=== PATIENT | male | born 1960 | race African-American/Black ===

== ENCOUNTER 2016-12-06 11:47 | Inpatient (IN) | payer BC ==
[2016-12-06 13:39] VITALS: BMI 23.2
--- NOTE | 2016-12-06 16:22 | HP ---
CIWA Score - CIWA Score Nausea/Vomitin Muscle Tremors: 4-Moderate,w/Arms Extend Anxiety: 4-Mod. Anxious/Guarded Agitation: 4-Moderately Restless Paroxysmal Sweats: 1-Minimal Palms Moist Orientation: 0-Oriented Tacttile Disturbances: 2-Mild Itch/Numbness/Burn Auditory Disturbances: 0-None Visual Disturbances: 0-None Headache: 4-Moderately Severe CIWA-Ar Total Score: 22 Admission ROS S - HPI Chief Complaint: Alcohol withdrawal sx Allergies/Adverse Reactions: Allergies Allergy/AdvReac Type Severity Reaction Status Date / Time No Known Allergies Allergy Verified 12/06/16 16:22 History of Present Illness: 56 years old male with a long history of alcohol dependence is admitted for detox. Patient has been in previous detox, recently 09/2016 at [facility]. Reports 5 months of sobriety and alcohol withdrawal when he is not drinking. Reports h/o of 5 seizures in september 2014, severe anxiety, 3 episodes of diarrhea and vomiting and inability to hold food. Poor skin turgor and dry mucous membrane noted and he appears dehydrated. Exam Limitations: No Limitations - Ebola screening Have you traveled outside of the country in the last 21 days: No Have you had contact with anyone from an Ebola affected area: No Have you been sick,other than usual withdrawal symptoms: No Do you have a fever: No - Review of Systems Constitutional: Chills, Loss of Appetite, Malaise, Night Sweats, Changes in sleep EENT: reports: Dental Problems (Missing upper teeth), Other (Left eye blindness) Respiratory: reports: Productive cough (thick, yellowish phelgm) Cardiac: reports: No Symptoms Reported GI: reports: Diarrhea (x 2.), Vomiting (x 3.) : reports: No Symptoms Reported Musculoskeletal: reports: Muscle Pain, Muscle Weakness, Joint Stiffness Integumentary: reports: Dryness, Flushing Neuro: reports: Headache, Seizure (alcohol related), Tingling, Tremors Endocrine: reports: Flushing, Unexplained Weight Loss Hematology: reports: No Symptoms Reported Psychiatric: reports: Orientated x3, Anxious, Depressed Other Systems: Reviewed and Negative Patient History - Patient Medical History Hx Anemia: Yes Hx Asthma: Yes Hx Chronic Obstructive Pulmonary Disease (COPD): No Hx Cancer: Yes (Kidney Ca) Hx Cardiac Disorders: No Hx Congestive Heart Failure: No Hx Hypertension: Yes (On meds; patient does not remember name/dose) Hx Hypercholesterolemia: No HX Cerebrovascular Accident: No Hx Seizures: Yes (September 2016) Hx Diabetes: No Hx Gastrointestinal Disorders: No Hx Liver Disease: No Hx Genitourinary Disorders: No Hx Sexually Transmitted Disorders: Yes (Herpes on meds) Hx Renal Disease (ESRD): No Hx Thyroid Disease: No Hx Human Immunodeficiency Virus (HIV): No (2016) Hx Hepatitis C: No Hx Depression: Yes Hx Suicide Attempt: No (Denies suicidal ideation at this time) Hx Bipolar Disorder: No Hx Schizophrenia: No Other Medical History: Gout - Patient Surgical History Past Surgical History: Yes Hx Neurologic Surgery: No Hx Cataract Extraction: Yes (2011) Hx Cardiac Surgery: No Hx Lung Surgery: No Hx Breast Surgery: No Hx Breast Biopsy: No Hx Abdominal Surgery: No Hx Appendectomy: No Hx Cholecystectomy: No Hx Genitourinary Surgery: No Hx Orthopedic Surgery: Yes (Left knee and left wrist due to a fall in 1974) Anesthesia Reaction: No - PPD History Previous Implant?: Yes Documented Results: Negative w/o proof Implanted On Prior [facility] Admission?: No PPD to be Administered?: Yes - Reproductive History Patient is a Female of Child Bearing Age (11 -55 yrs old): No (MALE) - Smoking Cessation Smoking history: Current every day smoker Have you smoked in the past 12 months: Yes Aproximately how many cigarettes per day: 20 Hx Chewing Tobacco Use: No Initiated information on smoking cessation: Yes 'Breaking Loose' booklet given: 12/06/16 - Substance & Tx. History Hx Alcohol Use: Yes Hx Substance Use: Yes Substance Use Type: Alcohol, Marijuana Hx Substance Use Treatment: Yes ([facility]) - Substances Abused Alcohol Route: Oral Frequency: Daily Amount used: 3 (4O-OZ) beer Age of first use: 17 Date of Last Use: 12/06/16 Marijuana/Hashish Route: Smoking Frequency: Daily Amount used: $25 Age of first use: 17 Date of Last Use: 12/06/16 Cocaine Route: Inhalation Frequency: 1-2 times per week Amount used: $20 Age of first use: 17 Date of Last Use: 12/02/16 Family Disease History - Family Disease History Family Disease History: CA: Mother (Lung Ca, .), Other: Father ( ) Admission Physical Exam [facility] - Vital Signs Vital Signs: Vital Signs - 24 hr 12/06/16 13:37 Temperature 96.2 F L Pulse Rate 77 Respiratory 20 Rate Blood Pressure 159/95 - Physical General Appearance: Yes: Moderate Distress, Alcohol on Breath, Tremorous, Irritable, Anxious HEENTM: Yes: Normal ENT Inspection, Normal Voice, Other (Left eye blindness) Respiratory: Yes: Lungs Clear, Normal Breath Sounds, No Respiratory Distress Neck: Yes: Supple Breast: Yes: Breast Exam Deferred Cardiology: Yes: Regular Rhythm, Regular Rate, S1, S2 Abdominal: Yes: Normal Bowel Sounds, Flat, Soft Genitourinary: Yes: Within Normal Limits Back: Yes: Within Normal Limits Musculoskeletal: Yes: Muscle Pain, Muscle weakness Extremities: Yes: Tremors, Other (Surgical scar to left knee and left wrist) Neurological: Yes: Fully Oriented, Alert, Normal Response Integumentary: Yes: Dry, Other (Left arm tatoo) Lymphatic: Yes: Within Normal Limits - Diagnostic (1) Alcohol dependence with uncomplicated withdrawal Current Visit: Yes Status: Acute (2) Marijuana dependence Current Visit: Yes Status: Acute (3) Sedative, hypnotic or anxiolytic dependence with withdrawal, uncomplicated Current Visit: Yes Status: Chronic (4) Seizure Current Visit: Yes Status: Chronic (5) Hypertension Current Visit: Yes Status: Chronic (6) Anxiety Current Visit: Yes Status: Chronic (7) Herpes Current Visit: Yes Status: Chronic (8) Kidney malignant neoplasm Current Visit: Yes Status: Chronic (9) Gout Current Visit: Yes Status: Chronic Cleared for Admission [facility] - Detox or Rehab [facility] Level of Care: Medically Managed Detox Regimen/Protocol: Librium [facility] Breath Alcohol Content Breath Alcohol Content: 0.029 Urine Drug Screen - Results Drug Screen Negative: No Urine Drug Screen Results: THC-Marijuana, BZO-Benzodiazepines
[2016-12-06] MEDS ORDERED: hydrOXYzine PAMOATE 50 MG CAPSULE (FP) PO PRN (17:05)
[2016-12-06] MEDS ORDERED: LOPERAMIDE HCL 2 MG CAPSULE PO PRN (17:05)
[2016-12-06] MEDS ORDERED: MAGNESIUM CITRATE 300 ML BOTTLE PO PRN (17:05)
[2016-12-06] MEDS ORDERED: MENTHOL/PHENOL 1 EACH UD MM PRN (17:05)
[2016-12-06] MEDS ORDERED: MAGNESIUM HYDROX 2400MG/30ML ORAL SUSPENSION 30 ML CUP PO PRN (17:05)
[2016-12-06] MEDS ORDERED: MAG HYDROX/AL HYDROX/SIMETH 30 ML UNIT-DOSE CUP PO PRN (17:05)
[2016-12-06] MEDS ORDERED: guaiFENesin/D-METHORPHAN HB 10 ML UNIT-DOSE CUPS PO PRN (17:05)
[2016-12-06] MEDS ORDERED: NICOTINE POLACRILEX 2 MG GUM BC PRN (17:05)
[2016-12-06] MEDS ORDERED: chlordiazePOXIDE HCL 25 MG CAPSULE PO PRN (17:05)
[2016-12-06] MEDS ORDERED: P-EPHED 60MG/TRIPROLIDI 2.5MG TABLET PO PRN (17:05)
[2016-12-06] MEDS: IBUPROFEN 400 MG TABLET (FP) PO PRN (20:17)
[2016-12-06] MEDS: diphenhydrAMINE HCL 50 MG CAPSULE PO PRN (22:19)
[2016-12-06] MEDS: chlordiazePOXIDE HCL 25 MG CAPSULE PO SCH (22:19)
[2016-12-06] MEDS: THIAMINE HCL 100 MG TABLET (FP) PO SCH (22:19)
[2016-12-06 22:25] LABS: URINE APPEARANCE CLEAR; URINE BILIRUBIN NEGATIVE (NEGATIVE); URINE BLOOD 1+ (NEGATIVE); URINE COLOR DKYELLOW; URINE GLUCOSE (UA) NEGATIVE (NEGATIVE); URINE KETONE NEGATIVE (NEGATIVE); URINE NITRITE NEGATIVE (NEGATIVE); URINE PROTEIN NEGATIVE (NEGATIVE)
[2016-12-07] MEDS: chlordiazePOXIDE HCL 25 MG CAPSULE PO SCH ×4 (06:22→22:26)
[2016-12-07] MEDS: IBUPROFEN 400 MG TABLET (FP) PO PRN ×2 (06:42→14:40)
[2016-12-07 10:06] LABS: MCH 31.8 pg (25.7-33.7); MEAN CELL VOLUME 99.3 fl (80-96); MEAN PLT VOLUME 8.9 fl (7.5-11.1); PLATELET COUNT 202 K/MM3 (134-434); RDW 15.2 % (11.9-15.9); WHITE BLOOD COUNT 6.4 K/mm3 (4.0-10.0)
[2016-12-07] MEDS: PRENATAL VITAMINS W/ FOLIC ACID TABLET (FP) PO SCH (10:26)
[2016-12-07 10:27] LABS: URINE LEUK ESTERASE Negative (NEGATIVE)
[2016-12-07] MEDS: NICOTINE 14 MG/24 HOURS TOPICAL PATCH TD SCH (10:27)
[2016-12-07] MEDS: QUEtiapine FUMARATE 50 MG TABLET PO SCH ×2 (10:27→22:26)
[2016-12-07] MEDS: ACETAMINOPHEN 325 MG TABLET (FP) PO PRN ×2 (10:42→17:15)
[2016-12-07 10:44] LABS: ALBUMIN 3.1 g/dl (3.4-5.0); ALK PHOS 111 U/L (45-117); ANION GAP 8 (8-16); BILIRUBIN,TOTAL 1.2 mg/dL (0.2-1.0); CALCIUM 8.2 mg/dL (8.5-10.1); CO2 26 mmol/L (21-32); GLUCOSE,RANDOM 94 mg/dL (74-106); SGOT/AST 23 U/L (15-37); SGPT/ALT 19 U/L (12-78); TOT PROT 7.2 g/dl (6.4-8.2)
--- NOTE | 2016-12-07 10:48 | EKG ---
Test Reason : Blood Pressure : / mmHG Vent. Rate : 075 BPM Atrial Rate : 075 BPM P-R Int : 152 ms QRS Dur : 102 ms QT Int : 390 ms P-R-T Axes : 074 068 068 degrees QTc Int : 435 ms NORMAL SINUS RHYTHM NONSPECIFIC ST ABNORMALITY ABNORMAL ECG NO PREVIOUS ECGS AVAILABLE Confirmed by DAVID NAIDU MD ([id number]) on 12/07/2016 10:47:52 AM Referred By: Confirmed By:DAVID NAIDU MD
--- NOTE | 2016-12-07 11:11 | PN ---
[facility] CIWA - CIWA Score Nausea/Vomitin-No Nausea/No Vomiting Muscle Tremors: 4-Moderate,w/Arms Extend Anxiety: 4-Mod. Anxious/Guarded Agitation: 4-Moderately Restless Paroxysmal Sweats: 1-Minimal Palms Moist Orientation: 0-Oriented Tacttile Disturbances: 3-Moderate Itch/Numb/Burn Auditory Disturbances: 0-None Visual Disturbances: 0-None Headache: 0-None Present CIWA-Ar Total Score: 16 S Progress Note (SOAP) Subjective: ANXIETY,TREMORS,IRRITABILITY,SWEATS/CHILLS. Objective: 12/07/16 11:09 Vital Signs Temperature 98.0 F 12/07/16 09:16 Pulse Rate 69 12/07/16 09:16 Respiratory Rate 20 12/07/16 09:16 Blood Pressure 124/84 12/07/16 09:16 O2 Sat by Pulse Oximetry (%) Laboratory Last Values WBC 6.4 K/mm3 (4.0-10.0) 12/07/16 07:00 RBC 3.49 M/mm3 (4.00-5.60) L 12/07/16 07:00 Hgb 11.1 GM/dL (11.7-16.9) L 12/07/16 07:00 Hct 34.7 % (35.4-49) L 12/07/16 07:00 MCV 99.3 fl (80-96) H 12/07/16 07:00 MCH 31.8 pg (25.7-33.7) 12/07/16 07:00 MCHC 32.0 g/dl (32.0-35.9) 12/07/16 07:00 RDW 15.2 % (11.9-15.9) 12/07/16 07:00 Plt Count 202 K/MM3 (134-434) 12/07/16 07:00 MPV 8.9 fl (7.5-11.1) 12/07/16 07:00 Sodium 138 mmol/L (136-145) 12/07/16 07:00 Potassium 3.4 mmol/L (3.5-5.1) L 12/07/16 07:00 Chloride 104 mmol/L (98-107) 12/07/16 07:00 Carbon Dioxide 26 mmol/L (21-32) 12/07/16 07:00 Anion Gap 8 (8-16) 12/07/16 07:00 BUN 11 mg/dL (7-18) 12/07/16 07:00 Creatinine 1.0 mg/dL (0.7-1.3) 12/07/16 07:00 Creat Clearance w eGFR > 60 (>60) 12/07/16 07:00 Random Glucose 94 mg/dL (74-106) 12/07/16 07:00 Calcium 8.2 mg/dL (8.5-10.1) L 12/07/16 07:00 Total Bilirubin 1.2 mg/dL (0.2-1.0) H 12/07/16 07:00 AST 23 U/L (15-37) 12/07/16 07:00 ALT 19 U/L (12-78) 12/07/16 07:00 Alkaline Phosphatase 111 U/L (45-117) 12/07/16 07:00 Total Protein 7.2 g/dl (6.4-8.2) 12/07/16 07:00 Albumin 3.1 g/dl (3.4-5.0) L 12/07/16 07:00 Urine Color Dkyellow 12/06/16 22:10 Urine Appearance Clear 12/06/16 22:10 Urine pH 5.0 (5.0-8.0) 12/06/16 22:10 Ur Specific [place] 1.020 (1.005-1.025) 12/06/16 22:10 Urine Protein Negative (NEGATIVE) 12/06/16 22:10 Urine Glucose (UA) Negative (NEGATIVE) 12/06/16 22:10 Urine Ketones Negative (NEGATIVE) 12/06/16 22:10 Urine Blood 1+ (NEGATIVE) H 12/06/16 22:10 Urine Nitrite Negative (NEGATIVE) 12/06/16 22:10 Urine Bilirubin Negative (NEGATIVE) 12/06/16 22:10 Urine Urobilinogen 2.0 mg/dL (0.2-1.0) 12/06/16 22:10 Ur Leukocyte Esterase Negative (NEGATIVE) 12/06/16 22:10 Urine RBC 3-6 /hpf (0-3) 12/06/16 22:10 LAB RESULTS NOTED. Assessment: 12/07/16 11:10 WITHDRAWAL SX Plan: CONTINUE DETOX
--- NOTE | 2016-12-07 11:24 | CONSULT ---
[facility] Psychiatric Consult - Data Date of interview: 12/07/16 Admission source: [facility] Identifying data: This is 56 years old male with no p[sychiatric hospitalization history intoxicated with: Alcohol, Cannabis and Nicotine Substance Abuse History: - Smoking Cessation. Smoking history: Current every day smoker. Have you smoked in the past 12 months: Yes. Aproximately how many cigarettes per day: 20. Hx Chewing Tobacco Use: No. Initiated information on smoking cessation: Yes. 'Breaking Loose' booklet given: 12/06/16. - Substance & Tx. History. Hx Alcohol Use: Yes. Hx Substance Use: Yes. Substance Use Type : Alcohol, Marijuana. Hx Substance Use Treatment: Yes ([facility]). - Substances Abused. Alcohol. Route: Oral. Frequency: Daily. Amount used: 3 (4O-OZ) beer. Age of first use: 17. Date of Last Use: . Marijuana/Hashish. Route: Smoking. Frequency: Daily. Amount used: $ 25. Age of first use: 17. Date of Last Use: 12/06/16. Cocaine. Route: Inhalation. Frequency: 1-2 times per week. Amount used: $20. Age of first use : 17. Date of Last Use: 12/02/16 Medical History: Gout, HTN, Hisotry of Kidney Neoplasm, Seizure history Psychiatric History: Patient reports history of anxiety, reports taking prior to admission: Seroquel 50mg po bid. Gabapentin 300mg po tid Physical/Sexual Abuse/Trauma History: Denies Additional Comment: Seroquel 50mg po bid. Gabapentin 300mg po tid Mental Status Exam - Mental Status Exam Alert and Oriented to: Person Cognitive Function: Fair Patient Appearance: Unkempt Mood: Sad Affect: Flat Patient Behavior: Sedated Speech Pattern: Appropriate Voice Loudness: Mildly Soft/Quiet Thought Process: Circumstantial Thought Disorder: Being Controlled Hallucinations: Denies Suicidal Ideation: Denies Homicidal Ideation: Denies Insight/Judgement: Fair Sleep: Difficulty falling asleep Appetite: Fair Muscle strength/Tone: Mild Hypotonicity Gait/Station: Shuffling Additional Comments: Seroquel 50mg po bid. Gabapentin 300mg po tid Psychiatric Findings - Problem List ([place] 1, 2,3) (1) Alcohol dependence with uncomplicated withdrawal Current Visit: Yes Status: Acute (2) Marijuana dependence Current Visit: Yes Status: Acute (3) Sedative, hypnotic or anxiolytic dependence with withdrawal, uncomplicated Current Visit: Yes Status: Chronic (4) Drug-induced mood disorder Current Visit: Yes Status: Acute - Initial Treatment Plan Initial Treatment Plan: Seroquel 50mg po bid. Gabapentin 300mg po tid
[2016-12-07] MEDS: GABAPENTIN 300 MG CAPSULE (FP) PO SCH ×2 (14:38→22:26)
[2016-12-07] MEDS: THIAMINE HCL 100 MG TABLET (FP) PO SCH (22:26)
[2016-12-07] MEDS: diphenhydrAMINE HCL 50 MG CAPSULE PO PRN (22:27)
[2016-12-08] MEDS: GABAPENTIN 300 MG CAPSULE (FP) PO SCH ×3 (05:59→22:20)
[2016-12-08] MEDS: chlordiazePOXIDE HCL 25 MG CAPSULE PO SCH ×3 (05:59→17:22)
[2016-12-08] MEDS: IBUPROFEN 400 MG TABLET (FP) PO PRN ×3 (06:08→17:26)
--- NOTE | 2016-12-08 08:33 | PN ---
S CIWA - CIWA Score Nausea/Vomitin-Mild Nausea/No Vomiting Muscle Tremors: 4-Moderate,w/Arms Extend Anxiety: 4-Mod. Anxious/Guarded Agitation: 4-Moderately Restless Paroxysmal Sweats: 3 Orientation: 0-Oriented Tacttile Disturbances: 2-Mild Itch/Numbness/Burn Auditory Disturbances: 0-None Visual Disturbances: 0-None Headache: 3-Moderate CIWA-Ar Total Score: 21 S Progress Note (SOAP) Subjective: [place]ED[place], shakes, insomnia, anxiety, numness and tingling requesting additional medications Objective: 12/08/16 08:30 Vital Signs - 24 hr 12/07/16 12/07/16 12/07/16 09:16 14:15 17:41 Temperature 98.0 F 97.4 F L 97.9 F Pulse Rate 69 84 66 Respiratory 20 20 18 Rate Blood Pressure 124/84 118/76 122/76 12/07/16 12/08/16 12/08/16 22:22 00:37 03:40 Temperature 96.6 F L Pulse Rate 54 L Respiratory 19 18 18 Rate Blood Pressure 148/93 12/08/16 06:14 Temperature 97.3 F L Pulse Rate 62 Respiratory 18 Rate Blood Pressure 127/74 Laboratory Tests 12/06/16 12/07/16 12/07/16 22:10 07:00 07:00 WBC 6.4 RBC 3.49 L Hgb 11.1 L Hct 34.7 L MCV 99.3 H MCH 31.8 MCHC 32.0 RDW 15.2 Plt Count 202 MPV 8.9 Sodium 138 Potassium 3.4 L Chloride 104 Carbon Dioxide 26 Anion Gap 8 BUN 11 Creatinine 1.0 Creat Clearance w eGFR > 60 Random Glucose 94 Calcium 8.2 L Total Bilirubin 1.2 H AST 23 ALT 19 Alkaline Phosphatase 111 Total Protein 7.2 Albumin 3.1 L Urine Color Dkyellow Urine Appearance Clear Urine pH 5.0 Ur Specific [place] 1.020 Urine Protein Negative Urine Glucose (UA) Negative Urine Ketones Negative Urine Blood 1+ H Urine Nitrite Negative Urine Bilirubin Negative Urine Urobilinogen 2.0 Ur Leukocyte Esterase Negative Urine RBC 3-6 RPR Titer 12/07/16 07:00 WBC RBC Hgb Hct MCV MCH MCHC RDW Plt Count MPV Sodium Potassium Chloride Carbon Dioxide Anion Gap BUN Creatinine Creat Clearance w eGFR Random Glucose Calcium Total Bilirubin AST ALT Alkaline Phosphatase Total Protein Albumin Urine Color Urine Appearance Urine pH Ur Specific [place] Urine Protein Urine Glucose (UA) Urine Ketones Urine Blood Urine Nitrite Urine Bilirubin Urine Urobilinogen Ur Leukocyte Esterase Urine RBC RPR Titer Nonreactive hypokalemia, macrocytic anemia, Assessment: 12/08/16 08:32 terry sx, anemia, hypokalemia Plan: cont detox, needs additional libirum doses, k supplementation, ensure , encourage fluids, ambulation, reviewed labs with patient
[2016-12-08] MEDS: PRENATAL VITAMINS W/ FOLIC ACID TABLET (FP) PO SCH (10:50)
[2016-12-08] MEDS: QUEtiapine FUMARATE 50 MG TABLET PO SCH ×2 (10:51→22:20)
[2016-12-08] MEDS: POTASSIUM CHLORIDE TABS 20 MEQ TABLET.ER (FP) PO SCH ×2 (10:51→22:19)
[2016-12-08] MEDS: NICOTINE 14 MG/24 HOURS TOPICAL PATCH TD SCH (10:52)
[2016-12-08] MEDS ORDERED: chlordiazePOXIDE HCL 25 MG CAPSULE PO ONE (13:00)
[2016-12-08] MEDS: chlordiazePOXIDE 5 MG CAPSULE PO SCH (22:19)
[2016-12-08] MEDS: THIAMINE HCL 100 MG TABLET (FP) PO SCH (22:19)
[2016-12-08] MEDS: ACETAMINOPHEN 325 MG TABLET (FP) PO PRN (22:22)
[2016-12-09] MEDS: chlordiazePOXIDE 5 MG CAPSULE PO SCH ×3 (06:01→17:37)
[2016-12-09] MEDS: GABAPENTIN 300 MG CAPSULE (FP) PO SCH ×3 (06:01→22:29)
[2016-12-09] MEDS: IBUPROFEN 400 MG TABLET (FP) PO PRN ×2 (06:23→17:40)
[2016-12-09] MEDS: QUEtiapine FUMARATE 50 MG TABLET PO SCH ×2 (10:40→22:29)
[2016-12-09] MEDS: POTASSIUM CHLORIDE TABS 20 MEQ TABLET.ER (FP) PO SCH ×2 (10:40→22:30)
[2016-12-09] MEDS: PRENATAL VITAMINS W/ FOLIC ACID TABLET (FP) PO SCH (10:40)
[2016-12-09] MEDS: NICOTINE 14 MG/24 HOURS TOPICAL PATCH TD SCH (10:41)
[2016-12-09] MEDS ORDERED: ONDANSETRON *ODT* 4 MG TABLET SL PRN (11:06)
[2016-12-09] MEDS: ACETAMINOPHEN 325 MG TABLET (FP) PO PRN ×2 (13:22→22:31)
--- NOTE | 2016-12-09 13:25 | PN ---
[facility] Progress Note (SOAP) Subjective: Stomach Cramping, Vomiting, Interrupted sleep, H/A, Sweating, Diarrhea. Objective: PT. A & O X 2 (DISORIENTED ABOUT DAY / DATE). PT. OBSERVED AMBULATING ON UNIT. NO ACUTE DISTRESS. 12/09/16 13:22 Vital Signs Temperature 97.2 F L 12/09/16 09:44 Pulse Rate 76 12/09/16 09:44 Respiratory Rate 18 12/09/16 09:44 Blood Pressure 133/87 12/09/16 09:44 O2 Sat by Pulse Oximetry (%) Laboratory Tests 12/06/16 12/07/16 12/07/16 22:10 07:00 07:00 WBC 6.4 RBC 3.49 L Hgb 11.1 L Hct 34.7 L MCV 99.3 H MCH 31.8 MCHC 32.0 RDW 15.2 Plt Count 202 MPV 8.9 Sodium 138 Potassium 3.4 L Chloride 104 Carbon Dioxide 26 Anion Gap 8 BUN 11 Creatinine 1.0 Creat Clearance w eGFR > 60 Random Glucose 94 Calcium 8.2 L Total Bilirubin 1.2 H AST 23 ALT 19 Alkaline Phosphatase 111 Total Protein 7.2 Albumin 3.1 L Urine Color Dkyellow Urine Appearance Clear Urine pH 5.0 Ur Specific [place] 1.020 Urine Protein Negative Urine Glucose (UA) Negative Urine Ketones Negative Urine Blood 1+ H Urine Nitrite Negative Urine Bilirubin Negative Urine Urobilinogen 2.0 Ur Leukocyte Esterase Negative Urine RBC 3-6 RPR Titer 12/07/16 07:00 WBC RBC Hgb Hct MCV MCH MCHC RDW Plt Count MPV Sodium Potassium Chloride Carbon Dioxide Anion Gap BUN Creatinine Creat Clearance w eGFR Random Glucose Calcium Total Bilirubin AST ALT Alkaline Phosphatase Total Protein Albumin Urine Color Urine Appearance Urine pH Ur Specific [place] Urine Protein Urine Glucose (UA) Urine Ketones Urine Blood Urine Nitrite Urine Bilirubin Urine Urobilinogen Ur Leukocyte Esterase Urine RBC RPR Titer Nonreactive LABS NOTED. Assessment: 12/09/16 13:23 WITHDRAWAL SYMPTOMS. ANEMIA, HYPOKALEMIA. 12/09/16 13:27 Plan: CONTINUE DETOX. PRN ZOFRAN SL FOR NAUSEA / VOMITING. CONTINUE K SUPPLEMENTATION. INCREASE DAILY PO FLUID INTAKE.
[2016-12-09] MEDS: THIAMINE HCL 100 MG TABLET (FP) PO SCH (22:29)
[2016-12-09] MEDS: chlordiazePOXIDE HCL 10 MG CAPSULE PO SCH (22:29)
[2016-12-10] MEDS: GABAPENTIN 300 MG CAPSULE (FP) PO SCH (06:19)
[2016-12-10] MEDS: chlordiazePOXIDE HCL 10 MG CAPSULE PO SCH (06:19)
[2016-12-10] MEDS: IBUPROFEN 400 MG TABLET (FP) PO PRN (06:19)
[2016-12-10 06:49] VITALS: BP 143/80; PULSE 66; TEMP 97
[2016-12-10] MEDS: PRENATAL VITAMINS W/ FOLIC ACID TABLET (FP) PO SCH (09:05)
[2016-12-10] MEDS: POTASSIUM CHLORIDE TABS 20 MEQ TABLET.ER (FP) PO SCH (09:06)
[2016-12-10] MEDS: QUEtiapine FUMARATE 50 MG TABLET PO SCH (09:07)
--- NOTE | 2016-12-10 13:23 | DS ---
[facility] Detox Discharge Summary Admission Date: 12/06/16 Discharge Date: 12/10/16 - History Present History: Alcohol Dependence, Cannabis Dependence, Sedative Dependence Pertinent Past History: Anemia Asthma Gout HTN Renal carcinoma Seizure - Physical Exam Results Vital Signs: Vital Signs Temperature 97 F L 12/10/16 06:49 Pulse Rate 66 12/10/16 06:49 Respiratory Rate 18 12/10/16 06:49 Blood Pressure 143/80 12/10/16 06:49 O2 Sat by Pulse Oximetry (%) Pertinent Admission Physical Exam Findings: Withdrawal symptoms Laboratory Tests 12/06/16 12/07/16 12/07/16 22:10 07:00 07:00 WBC 6.4 RBC 3.49 L Hgb 11.1 L Hct 34.7 L MCV 99.3 H MCH 31.8 MCHC 32.0 RDW 15.2 Plt Count 202 MPV 8.9 Sodium 138 Potassium 3.4 L Chloride 104 Carbon Dioxide 26 Anion Gap 8 BUN 11 Creatinine 1.0 Creat Clearance w eGFR > 60 Random Glucose 94 Calcium 8.2 L Total Bilirubin 1.2 H AST 23 ALT 19 Alkaline Phosphatase 111 Total Protein 7.2 Albumin 3.1 L Urine Color Dkyellow Urine Appearance Clear Urine pH 5.0 Ur Specific [place] 1.020 Urine Protein Negative Urine Glucose (UA) Negative Urine Ketones Negative Urine Blood 1+ H Urine Nitrite Negative Urine Bilirubin Negative Urine Urobilinogen 2.0 Ur Leukocyte Esterase Negative Urine RBC 3-6 RPR Titer 12/07/16 07:00 WBC RBC Hgb Hct MCV MCH MCHC RDW Plt Count MPV Sodium Potassium Chloride Carbon Dioxide Anion Gap BUN Creatinine Creat Clearance w eGFR Random Glucose Calcium Total Bilirubin AST ALT Alkaline Phosphatase Total Protein Albumin Urine Color Urine Appearance Urine pH Ur Specific [place] Urine Protein Urine Glucose (UA) Urine Ketones Urine Blood Urine Nitrite Urine Bilirubin Urine Urobilinogen Ur Leukocyte Esterase Urine RBC RPR Titer Nonreactive Labs noted: K 3.4 (hypokalemia: supplemented); h/h 11.1/34.7; UA shows microscopic hematuria (encouraged to drink lots of water and follow up with PCP post discharge) - Treatment Hospital Course: Detox Protocol Followed, Detoxed Safely, Responded well, Discharged Condition Good - Medication Discharge Medications: Ambulatory Orders Gabapentin [Neurontin -] 300 mg PO TID #90 cap 12/07/16 Quetiapine Fumarate [Seroquel -] 50 mg PO BID #60 tablet 12/07/16 - Diagnosis (1) Alcohol dependence with uncomplicated withdrawal Status: Acute (2) Marijuana dependence Status: Chronic (3) Gout Status: Chronic (4) Hypertension Status: Chronic Qualifiers: Hypertension type: essential hypertension Qualified Code(s): I10 - Essential (primary) hypertension; I10 - Essential (primary) hypertension; I10 - Essential (primary) hypertension (5) Kidney malignant neoplasm Status: Chronic (6) Sedative, hypnotic or anxiolytic dependence with withdrawal, uncomplicated Status: Acute (7) Seizure Status: Chronic (8) Nicotine dependence Status: Chronic (9) Depression Status: Chronic (10) Anemia Status: Chronic (11) Asthma Status: Chronic Qualifiers: Asthma severity: mild Asthma persistence: intermittent Asthma complication type: uncomplicated Qualified Code(s): J45.20 - Mild intermittent asthma, uncomplicated; J45.20 - Mild intermittent asthma, uncomplicated; J45.20 - Mild intermittent asthma, uncomplicated (12) Hypokalemia Status: Acute (13) Microscopic hematuria Status: Acute - AMA Did Patient Leave Against Medical Advice: No (F/U with your PCP in 1-2 weeks)
== END 2016-12-10 09:22 | disposition home or self-care (01) | DRG 775 ==
LOC: YASAS 11:47 → Y3N 19:19
PROVIDERS: ADMIT Internal Medicine; ATTEND Internal Medicine
PROC: HZ2ZZZZ Detoxification Services for Substance Abuse Treatment (ICD-10-PCS; principal; 2016-12-06)
DX: F10.230 Alcohol dependence with withdrawal, uncomplicated (principal); F13.230 Sedative, hypnotic or anxiolytic dependence with withdrawal, uncomplicated; F12.20 Cannabis dependence, uncomplicated; F17.210 Nicotine dependence, cigarettes, uncomplicated; F32.9 Major depressive disorder, single episode, unspecified; F19.24 Other psychoactive substance dependence with psychoactive substance-induced mood disorder; F41.9 Anxiety disorder, unspecified; M10.9 Gout, unspecified; G40.909 Epilepsy, unspecified, not intractable, without status epilepticus; I10 Essential (primary) hypertension; J45.20 Mild intermittent asthma, uncomplicated; E87.6 Hypokalemia; R31.29 Other microscopic hematuria; D53.9 Nutritional anemia, unspecified; Z85.528 Personal history of other malignant neoplasm of kidney; Z87.438 Personal history of other diseases of male genital organs; Z59.0 Homelessness
CPT/HCPCS: 36415; 80053; 81003; 81015; 85027; 86593; 93005; 93010